=== PATIENT | female | born 1940 | race Caucasian/White ===

== ENCOUNTER 2024-07-27 08:24 | Emergency (ER) | payer MEDICARE, BC, SELFPAY ==
[2024-07-27 08:28] VITALS: BP 175/101; PULSE 102; RESP 18; O2SAT 91; BMI 31.3
--- NOTE | 2024-07-27 09:02 | CRLHL7_ITS ---
For Patients: As a result of the Cures Act, medical imaging exams and procedure reports are released immediately into your electronic medical record. You may view this report before your referring provider. If you have questions, please contact your health care provider. Indication: Left hip pain Technique: An AP view of the pelvis was acquired as well as an AP and lateral view of the left hip Comparison: June 03, 2016 Findings: Degenerative change of the visualized lower lumbar spine. Decreased bone mineral density. Right hip arthroplasty without specific foci of associated complication. Moderate left hip joint osteoarthritis which is essentially new since the prior study. No fracture or destructive process. Impression: 1. Moderate left hip joint osteoarthritis which is essentially new since 2016. 2. Right hip arthroplasty. 3. Demineralized osseous structures. Degenerative changes of the visualized lower lumbar spine 4. No acute fracture, dislocation or destructive process Dictated by Jose Luis Cunningham MD @ 07/27/2024 9:43:42 AM (Electronically Signed)
--- NOTE | 2024-07-27 09:02 | CRLHL7_ITS ---
For Patients: As a result of the Cures Act, medical imaging exams and procedure reports are released immediately into your electronic medical record. You may view this report before your referring provider. If you have questions, please contact your health care provider. Indication: Pain Technique: Three images of left knee were acquired Comparison: None Findings: Bones: Decreased bone mineral density. No fracture identified Joint spaces: Left knee arthroplasty. Prosthetic components appear intact. Moderate periimplant lucency identified both medially and laterally adjacent to the condylar portions the arthroplasty. This can be seen in loosening, less likely osteomyelitis. No abnormal lucency is identified about the tibial component of the arthroplasty or the weight-bearing areas of the femoral component of the arthroplasty. Soft tissues: Unremarkable. Impression: 1. Left knee arthroplasty. 2. Periprosthetic lucency about the femoral component which may be due to loosening. An infectious inflammatory process is less likely but not entirely excluded. Correlate with the clinical picture. Dictated by Jose Luis Cunningham MD @ 07/27/2024 9:47:31 AM (Electronically Signed)
--- NOTE | 2024-07-27 10:00 | ED_ITS ---
HPI - General Adult General Chief complaint: Extremity Pain/Injury, Lower Stated complaint: LT hip leg pain Time Seen by Provider: 07/27/24 09:01 History of Present Illness HPI narrative: 84-year-old female with a history of osteoarthritis and previous right hip and bilateral knee replacements as well as a history of low back pain with history of lumbar radiculopathy and previous back surgeries, presenting to the ER today for evaluation of atraumatic left hip, knee, and left leg pain. She says she has had some pain in her left knee and hip for quite a long time but since last week she has had an exacerbation of pain. She says she is pretty comfortable in her she is sitting down resting but has a lot of pain in her left hip and left knee and radiating down the left side of her calf, since last week. She has no injury. No fall. No change in activity or overuse. No twisting injury to the knee. No swelling of the leg. No redness or pallor or cyanosis or change in color. No fever or chills. No recent travel. The pain has been getting worse for the past 3 or 4 days and has gotten fairly significant where she has trouble walking around so she came here to the ER today. The patient says, ?I can not walk on my left leg? but that is not exactly accurate. She is able to walk, but the pain limits her ability to or get around and limits her distance of walking. The pain is triggered by any standing on the left leg it is not really related to exertion or walking like claudication. The pain does not feel the tingling or burning and is dissimilar to previous lumbar radiculopathy. She also notes that she has had both of her knees replaced by Dr. Merchant, orthopedics here in [place]. Ever since she had a right knee replaced she has had chronic numbness in her toes of her right foot. She is frustrated because she talked to orthopedic team about and was told that her x-rays looked good. She has never had this worked up by her primary or by Neurology to look for neuropathy. She had her left knee replaced about 10 years ago and says that that surgery has been very good. Related Data Allergies Allergy/AdvReac Type Severity Reaction Status Date / Time [id number] Reductase Allergy Severe Anaphylaxis Verified 07/27/24 08:43 Inhibitor acetaminophen [From Percocet] AdvReac Mild Vomiting Verified 07/27/24 08:43 oxycodone [From Percocet] AdvReac Mild Vomiting Verified 07/27/24 08:43 Exam Narrative: Exam Narrative: Constitutional: Appears well-developed and well-nourished. Alert. Conversant. Non toxic. HENT: Head: Atraumatic. Nose: Nose normal. Mouth/Throat: Oral mucosa is clear and moist. no trismus. Eyes: Conjunctivae normal. EOM normal. Pupils equal, round, and reactive to light. No scleral icterus. Neck: Normal range of motion. Neck supple. No tracheal deviation present. Cardiovascular: Normal rate, regular rhythm. No gallop. No friction rub. No murmur heard. Symmetric DP artery pulses . Normal brisk distal capillary refill Pulmonary/Chest: Effort normal. No stridor. No respiratory distress. No wheezes. No rales. No rhonchi . No tenderness. Abdominal: Soft. No distension. No mass. No tenderness. No rebound. No guarding. Musculoskeletal: Healed lumbar incision. There is no lumbar tenderness, midline step-off. Pelvis is stable. No erythema, ecchymosis, rash. RUE: Normal range of motion. No tenderness. No deformity LUE: Normal range of motion. No tenderness. No deformity RLE: Normal range of motion. No edema. No tenderness. No deformity LLE: She does have some pain in her left hip with flexion and particular with flexion approaching 90?. No tenderness to palpation. No bony crepitus. No bruising. No swelling. No foreshortening. Quadriceps and hamstring and femoral shaft nontender and normal. Knee: Healed anterior incision from knee replacement. No effusion. No swelling. No redness or warmth. No point tenderness. She is able to flex her knee to 90? and fully extend. Lower leg and calf: No edema. No redness. Normal pink warm skin. Normal cap refill. Ankle: No swelling. Nontender. Foot: No swelling or edema. No tenderness. Intact toe wiggling. Neurological: Alert and oriented to person, place, and time. Normal strength. CN II-VII intact. No sensory deficit. GCS eye subscore is 4. GCS verbal subscore is 5. GCS motor subscore is 6. Normal coordination Sensory: Normal light touch sensation bilaterally on the anteromedial thigh (L3), medial malleolus (L4), dorsal first web space (L5), lateral malleolus (S1), but she does have subjective paresthesias involving the left foot in a nondermatomal pattern. Strength: 5/5 strength hip flexors (L3) on the rig ht and left 5/5 strength in the quadriceps (L4) on t he right and left 5/5 strength in the tibialis anterior 5/5 strength in the EHL (L5) on the righ t and left 5/5 strength in the gastrocnemius (S1) o n the right and left 5/5 strength in the hamstring on the rig ht and left Negative straight leg raise bilaterally. Skin: Skin is warm and dry. No rash noted. No pallor. Normal capillary refill. Psychiatric: Normal mood. Normal affect. Const: Vital Signs, click to edit/add: Vital Signs - 24 hr 07/27/24 08:28 07/27/24 10:29 Temperature 98.0 F Pulse Rate [Right Pulse Oximeter] 102 H 96 Respiratory Rate 18 18 Blood Pressure [Ri ght Upper Arm] 175/101 H 174/105 H Pulse Oximetry 91 94 Oxygen Delivery Me thod Room Air Room Air Course Vital Signs Vital signs: Initial Vital Signs Pulse Rate 102 H 07/27/24 08:28 Respiratory Rate 18 07/27/24 08:28 Blood Pressure 175/101 H 07/27/24 08:28 Blood Pressure Mean 125 H 07/27/24 08:28 Blood Pressure Position Sitting 07/27/24 08:28 Pulse Oximetry 91 07/27/24 08:28 Oxygen Delivery Method Room Air 07/27/24 08:28 Vital Signs Pulse Rate 102 H 07/27/24 08:28 Respiratory Rate 18 07/27/24 08:28 Blood Pressure 175/101 H 07/27/24 08:28 Pulse Oximetry 91 07/27/24 08:28 Oxygen Delivery Method Room Air 07/27/24 08:28 Temperature 98.0 F 07/27/24 10:29 Pulse Rate 96 07/27/24 10:29 Respiratory Rate 18 07/27/24 10:29 Blood Pressure 174/105 H 07/27/24 10:29 Pulse Oximetry 94 07/27/24 10:29 Oxygen Delivery Method Room Air 09/05/24 10:29 Medical Decision Making MDM Narrative Medical decision making narrative: Pleasant 84-year-old female presenting to the ER today with atraumatic left hip, knee and left lower leg pain. She has had some longstanding pain in her left hip but things have gotten worse since last week. No recent injury, fall or overuse. Differential here is broad. At this point exam shows no evidence for DVT in the left leg. She has strong pulses and normal cap refill and no evidence for limb ischemia. Her history really does not support vascular claudication since she has pain with any standing, not really triggered by exertion or walking. No signs of any so infection, cellulitis, abscess, shingles. She is not having any back pain or any weakness in the leg. Pain is dissimilar to previous lumbar radiculopathy so at this point would hold off on MRI of her L-spine. There is no fever or chills or redness or warmth of her hip or knee to suggest a septic arthritis or gout. X-rays of left hip shows no fracture but does show osteoarthritis which had not been present on her previous imaging (last was 8 years ago). X-ray of her left knee shows no evidence for acute fracture. There is some question about possible prosthetic loosening in the distal femur per Radiology. I reviewed both of the x-rays with Orthopedics, LUIS Edgar. She does not think there is any periprosthetic loosening at the knee joint but does agree there is significant arthritis in the hip. She also wonders if there may be indication for an MRI of the left hip (which can be done in clinic) to look for other signs of arthritis not visible on the x-ray. At this point we suspect that her left leg pain is probably due to hip arthritis with for pain down to the knee. She can manage this at home with Tylenol (refuses any other meds) and will borrow her sister's walker to help with weight-bearing. Orthopedic clinic will contact her today to set up an appointment (hopefully tomorrow)for further evaluation. She is agreeable to this plan of care. Imaging Data XR L hip: Attestation: I have reviewed the pertinent imaging results. Radiologist's impression: Impression: 1. Moderate left hip joint osteoarthritis which is essentially new since 2016. 2. Right hip arthroplasty. 3. Demineralized osseous structures. Degenerative changes of the visualized lower lumbar spine 4. No acute fracture, dislocation or destructive process XR L knee: Attestation: I have reviewed the pertinent imaging results. Radiologist's impression: Impression: 1. Left knee arthroplasty. 2. Periprosthetic lucency about the femoral component which may be due to loosening. An infectious inflammatory process is less likely but not entirely excluded. Correlate with the clinical picture. Discharge Plan Discharge Clinical Impression: Arthritis of left hip, Left leg pain Patient Disposition: Home, Self-Care Condition: Stable Instructions: Osteoarthritis (ED), Leg Pain (ED) Additional Instructions: Appointment set up at [facility] tomorrow (07/28) at 10:[address] Sanchez. If you need to reschedule your appointment, call the clinic at [phone]. Use Tylenol 1000 mg 3 times daily if needed for pain. You can use your sister's walker to help with pain management in balance. If you have worsening pain, swelling or redness or discoloration of your leg, fever, or any problems, please come back to the ER or see the orthopedic clinic right away. Follow Up/Referrals: Adriana Barron DO [Primary Care Provider] - Stand Alone Forms: [employer] Info Instructions
[2024-07-27 10:29] VITALS: BP 174/105; PULSE 96; RESP 18; TEMP 36.7; O2SAT 94
== END 2024-07-27 10:47 | disposition home or self-care (01) ==
PROVIDERS: Emergency Provider Emergency Medicine; PCP Family Medicine
DX: M16.12 Unilateral primary osteoarthritis, left hip (principal)
CPT/HCPCS: 73502; 73562; 99282; 99283

== ENCOUNTER 2024-08-08 09:54 | Outpatient (CLI) | payer MEDICARE, BC, SELFPAY ==
--- NOTE | 2024-08-08 10:15 | CRLHL7_ITS ---
For Patients: As a result of the Century Cures Act, medical imaging exams and procedure reports are released immediately into your electronic medical record. You may view this report before your referring provider. If you have questions, please contact your health care provider. INDICATION: Low back pain. COMPARISON: 07/28/2024. TECHNIQUE: Sagittal T1, T2, and STIR sequences. Axial T1 and T2 weighted sequences. FINDINGS: Trace degenerative anterolisthesis of L3 on L4 measures approximately 3 millimeters. Otherwise, normal alignment. Stable chronic mild loss of height and anterior wedging of the L2 vertebral body. Stable cortical irregularity at the anterior superior corner. Stable postoperative changes of posterior fusion hardware L3-4 with laminectomies. T12-L1: Disc degeneration posted disc bulge. No narrowing of spinal canal. No neural foraminal narrowing. L1-2: Disc degeneration. Posterior disc bulge. Mild narrowing of the spinal canal. Moderate right and mild left neural foraminal narrowing. Mild os arthropathy. L2-3: Disc degeneration. Posterior disc bulge. Combined facet arthropathy, there is moderate severe narrowing of spinal canal. Impingement of the traversing L3 nerve roots. Mild narrowing of bilateral foramina. L3-4: Postoperative changes. No narrowing of spinal canal. No neural foraminal narrowing. L4-5: Postop changes. Disc degeneration. No narrowing of the spinal canal. Mild narrowing of bilateral foramina. L5-S1: Disc degeneration and diffuse disc bulge eccentric to the left. No narrowing of the spinal canal. No impingement of the traversing S1 nerve roots. Mild narrowing of the left neural foramen. No narrowing of the right neural foramen. Normal visualized SI joints. Normal paraspinal soft tissues. IMPRESSION: 1. Trace degenerative anterolisthesis of L3 on L4. Otherwise, normal alignment. 2. Stable chronic mild loss of height and anterior wedging of the L2 vertebral body. 3. Stable postoperative changes L3-4. 4. At L1-2, mild narrowing of the spinal canal. Moderate right and mild left neural foraminal narrowing. 5. At L2-3, moderate to severe narrowing of the spinal canal. Impingement of the traversing L3 nerve roots. Mild narrowing of the bilateral neural foramina 6. At L4-5, mild narrowing of the bilateral neural foramina 7. At L5-S1, mild narrowing of left neural foramen Dictated by Esteban Delgado MD @ 08/09/2024 9:55:33 AM (Electronically Signed)
== END 2024-08-08 09:55 | disposition home or self-care (01) ==
LOC: MRI 09:57
PROVIDERS: PCP Family Medicine; Visit Provider Orthopaedic Surgery Sports Medicine
DX: M54.50 Low back pain, unspecified (principal); M51.26 Other intervertebral disc displacement, lumbar region; M54.16 Radiculopathy, lumbar region
CPT/HCPCS: 72148